=== PATIENT | male | born 1980 | race American Indian/Alaskan Native ===

== ENCOUNTER 2017-12-12 07:42 | Emergency (ER) | payer OTHER ==
--- NOTE | 2017-12-12 08:42 | Emergency Department Report ---
ED Chest Pain HPI - General Stated Complaint: CP Time Seen by Provider: 12/12/17 08:42 - History of Present Illness Initial Comments: 29-year-old male complains of S discomfort that occurred out of 5 in the morning. Patient states that he has never experienced this before. He was transferred via EMS. He was given 4 aspirin (81 mg) and 2 nitroglycerin sublingually. Patient states the pain went from an 8-2 time of arrival. He stated he did not feel short of breath. However, the pain varies with respirations but there was no cough. Patient denies any leg pain or swelling. He had no nausea vomiting or diaphoresis. The pain did not radiate and was in the substernal area. MD Complaint: chest pain -: unknown (awoke with pain) Onset: during rest Pain Location: substernal Pain Radiation: none Severity: moderate, severe Quality: pressure Consistency: now resolved (largely resolved by arrival) Improves With: nitroglycerin Worsens With: nothing re: denies: nausea, vomting, diaphoresis, dyspnea, sense of impending doom Other Symptoms: denies: cough, fever, syncope Treatments Prior to Arrival: aspirin, nitroglycerin Aspirin use within the Past 7 Days: (0) No - Related Data Allergies Allergy/AdvReac Type Severity Reaction Status Date / Time No Known Allergies Allergy Unverified 12/12/17 11:38 Heart Score - HEART Score History: Moderately suspicious EKG: Normal Age: < 45 Risk factors: 1-2 risk factors Troponin: < normal limit HEART Score: 2 - Critical Actions Critical Actions: 0-3 pts:0.9-1.7%risk of adverse cardiac event.Candidate for discharge ED Review of Systems ROS: Stated complaint: CP Other details as noted in HPI Constitutional: denies: chills, fever Eyes: denies: eye pain, eye discharge, vision change ENT: denies: ear pain, throat pain Respiratory: denies: cough, shortness of breath, wheezing Cardiovascular: chest pain. denies: palpitations Endocrine: no symptoms reported Gastrointestinal: denies: abdominal pain, nausea, diarrhea Genitourinary: denies: urgency, dysuria Musculoskeletal: denies: back pain, joint swelling, arthralgia Skin: denies: rash, lesions Neurological: denies: headache, weakness, paresthesias Psychiatric: denies: anxiety, depression Hematological/Lymphatic: denies: easy bleeding, easy bruising ED Past Medical Hx - Past Medical History Previous Medical History?: No - Family History Family history: other (no known coronary artery disease) - Social History Substance Use Type: Marijuana, Other (drank a beer last night) ED Physical Exam - General General appearance: alert, in no apparent distress - Head Head exam: Present: atraumatic, normocephalic - Eye Eye exam: Present: normal appearance. Absent: scleral icterus - ENT ENT exam: Present: mucous membranes moist - Neck Neck exam: Present: normal inspection. Absent: tenderness, meningismus - Respiratory Respiratory exam: Present: normal lung sounds bilaterally. Absent: respiratory distress - Cardiovascular Cardiovascular Exam: Present: regular rate, normal rhythm. Absent: systolic murmur, diastolic murmur, rubs, gallop - GI/Abdominal GI/Abdominal exam: Present: soft, normal bowel sounds. Absent: distended, tenderness, guarding, rebound, rigid - Rectal Rectal exam: Present: deferred - Extremities Exam Extremities exam: Present: normal inspection, full ROM, normal capillary refill. Absent: tenderness, pedal edema, joint swelling, calf tenderness - Back Exam Back exam: Present: normal inspection - Neurological Exam Neurological exam: Present: alert, oriented X3, CN II-XII intact. Absent: motor sensory deficit - Psychiatric Psychiatric exam: Present: normal affect, normal mood - Skin Skin exam: Present: warm, dry, intact, normal color. Absent: rash ED Course Vital Signs 12/12/17 12/12/17 12/12/17 07:45 08:20 08:30 Temperature 98 F Pulse Rate 60 72 77 Respiratory 16 10 L 25 H Rate Blood Pressure 127/67 O2 Sat by Pulse 99 Oximetry 12/12/17 12/12/17 12/12/17 08:46 09:00 09:15 Temperature Pulse Rate 72 72 68 Respiratory 16 27 H 18 Rate Blood Pressure 127/67 117/69 116/71 O2 Sat by Pulse Oximetry 12/12/17 12/12/17 12/12/17 09:30 09:45 10:00 Temperature Pulse Rate 71 73 80 Respiratory 17 20 18 Rate Blood Pressure 119/67 117/65 111/56 O2 Sat by Pulse Oximetry 12/12/17 12/12/17 12/12/17 10:15 10:30 10:45 Temperature Pulse Rate 72 73 69 Respiratory 24 22 21 Rate Blood Pressure 112/65 123/65 111/53 O2 Sat by Pulse Oximetry 12/12/17 11:00 Temperature Pulse Rate 75 Respiratory 23 Rate Blood Pressure 113/56 O2 Sat by Pulse Oximetry - Reevaluation(s) Reevaluation #1: Patient remains clinically stable. He is not complaining of any further chest pain. He was referred to Dr. Gautam of hospital service for further care and evaluation. 12/12/17 12:24 MARIA DEL ROSARIO score - Maria Del Rosario Score Age > 65: (0) No Aspirin use within the Past 7 Days: (0) No 3 or more CAD Risk Factors: (0) No 2 or more Angina events in past 24 hrs: (0) No Known CAD with more than 50% Stenosis: (0) No Elevated Cardiac Markers: (0) No ST Deviation Greater than 0.5mm: (0) No MARIA DEL ROSARIO Score: 0 ED Medical Decision Making - Lab Data Result diagrams: 12/12/17 08:15 12/12/17 08:15 Laboratory Results - last 24 hr 12/12/17 12/12/17 12/12/17 08:15 08:15 08:15 WBC 4.9 RBC 4.72 Hgb 13.5 Hct 39.9 MCV 85 MCH 29 MCHC 34 RDW 14.3 Plt Count 136 L Lymph % (Auto) 21.4 [place] % (Auto) 9.7 H Eos % (Auto) 1.3 Baso % (Auto) 0.6 Lymph # 1.0 L [place] # 0.5 Eos # 0.1 Baso # 0.0 Seg Neutrophils % 67.0 Seg Neutrophils # 3.3 PT 13.0 INR 0.94 APTT 28.6 D-Dimer < 135.0 Sodium 137 Potassium 3.7 Chloride 100.1 Carbon Dioxide 25 Anion Gap 16 BUN 9 Creatinine 0.9 Estimated GFR > 60 BUN/Creatinine Ratio 10 Glucose 105 H Calcium 8.9 Magnesium Total Bilirubin Direct Bilirubin Indirect Bilirubin AST ALT Alkaline Phosphatase Troponin T < 0.010 NT-Pro-B Natriuret Pep Total Protein Albumin Albumin/Globulin Ratio 12/12/17 08:15 WBC RBC Hgb Hct MCV MCH MCHC RDW Plt Count Lymph % (Auto) [place] % (Auto) Eos % (Auto) Baso % (Auto) Lymph # [place] # Eos # Baso # Seg Neutrophils % Seg Neutrophils # PT INR APTT D-Dimer Sodium Potassium Chloride Carbon Dioxide Anion Gap BUN Creatinine Estimated GFR BUN/Creatinine Ratio Glucose Calcium Magnesium 1.90 Total Bilirubin 0.40 Direct Bilirubin < 0.2 Indirect Bilirubin 0.2 AST 14 ALT 16 Alkaline Phosphatase 66 Troponin T NT-Pro-B Natriuret Pep 9.28 Total Protein 6.5 Albumin 4.0 Albumin/Globulin Ratio 1.6 - EKG Data -: EKG Interpreted by Me EKG shows normal: sinus rhythm, intervals, QRS complexes, ST-T waves Rate: normal - EKG Data Interpretation: no acute changes, other (left axis deviation) - Radiology Data Radiology results: report reviewed (chest x-ray no acute process) Critical care attestation.: If time is entered above; I have spent that time in minutes in the direct care of this critically ill patient, excluding procedure time. ED Disposition Clinical Impression: Chest pain Qualifiers: Chest pain type: unspecified Qualified Code(s): R07.9 - Chest pain, unspecified Disposition: 09 OP ADMIT IP TO THIS HOSP Is pt being admited?: Yes Does the pt Need Aspirin: Yes (already given by EMS) Condition: Stable Instructions: Chest Pain (ED) Referrals: PRIMARY CARE, [Primary Care Provider] - 3-5 Days Time of Disposition: 12:25
[2017-12-12] MEDS ORDERED: ASPIRIN PO ONE (08:57)
[2017-12-12 09:19] LABS: Basophils % (Auto) 0.6 % (0.0-1.8); Eosinophils # (Auto) 0.1 K/mm3 (0.0-0.4); Eosinophils % (Auto) 1.3 % (0.0-4.3); Hematocrit 39.9 % (35.5-45.6); Hemoglobin 13.5 gm/dl (11.8-15.2); Lymphocytes % (Auto) 21.4 % (13.4-35.0); Mean Corpuscular HGB Conc 34 % (32-34); Mean Corpuscular Hemoglobin 29 pg (28-32); Mean Corpuscular Volume 85 fl (84-94); Monocytes # (Auto) 0.5 K/mm3 (0.0-0.8); Monocytes % (Auto) 9.7 % (0.0-7.3); Platelet Count 136 K/mm3 (140-440); Red Blood Count 4.72 M/mm3 (3.65-5.03); Red Cell Distribution Width 14.3 % (13.2-15.2)
[2017-12-12 09:30] LABS: INR 0.94 (0.87-1.13)
[2017-12-12 09:31] LABS: Partial Thromboplastin Time 28.6 Sec. (24.2-36.6)
[2017-12-12 09:36] LABS: BUN/Creatinine Ratio 10; Blood Urea Nitrogen 9 mg/dL (9-20); Calcium 8.9 mg/dL (8.4-10.2); Hemolysis Index 8
[2017-12-12 09:39] LABS: Alanine Aminotransferase 16 units/L (7-56)
[2017-12-12 09:44] LABS: Bilirubin,Direct < 0.2 mg/dL (0-0.2)
[2017-12-12 12:03] LABS: Bilirubin,Urine NEG (Negative); Blood,Urine NEG (Negative); Color,Urine Yellow (Yellow); Mucus,Urine FEW /HPF; Protein,Urine <15 mg/dL mg/dL (Negative); Urobilinogen,Urine < 2.0 mg/dL (<2.0)
[2017-12-12 12:15] LABS: Amphetamine Screen,Urine PRESUMPTIVE NEGATIVE; Benzodiazepines Screen,Urine PRESUMPTIVE NEGATIVE; Cocaine Screen,Urine PRESUMPTIVE NEGATIVE; Methadone Screen,Urine PRESUMPTIVE NEGATIVE; Opiate Screen,Urine PRESUMPTIVE NEGATIVE
[2017-12-12 12:27] LABS: Cannabinoid Screen,Urine PRESUMPTIVE POSITIVE
--- NOTE | 2017-12-12 12:32 | History and Physical Report ---
History of Present Illness Chief complaint: chest pain History of present illness: 37 YO Male with No PMH presents to ED for evaluation. Pt found to have Atypical chest pain. Pt treated with serial cardiac enzymes, ekg, telemetry, d dimer which were normal, and not indicative of acute ischemia. Pt found to have symptoms consistent with GERD. Pt treated with supportive care with resolution of symptoms. Pt medically optimized and back to usual state of health. Pt discharged home and instructed to f/u pcp 1wk, and cardiology 1wk for further care. Past History Past Medical History: No medical history (reviewed) Past Surgical History: No surgical history (reviewed) Social history: single Family history: no significant family history Medications and Allergies Allergies Allergy/AdvReac Type Severity Reaction Status Date / Time No Known Allergies Allergy Unverified 12/12/17 11:38 Home Medications Medication Instructions Recorded Confirmed Last Taken Type Pantoprazole [Protonix TAB] 20 mg PO QDAY #30 tablet. 12/12/17 Unknown Rx Review of Systems Constitutional: no weight loss, no weight gain, no fever, no chills Ears, nose, mouth and throat: no ear pain, no ear discharge, no tinnitis, no decreased hearing, no nose pain, no nasal congestion Cardiovascular: chest pain, no orthopnea, no palpitations, no rapid/irregular heart beat, no edema, no syncope, no lightheadedness, no shortness of breath, no dyspnea on exertion, no paroxysmal nocturnal dyspnea, no claudication, no phlebitis, no high blood pressure, no leg edema, no decreased exercise tolerance Respiratory: no cough with sputum, no excessive sputum, no hemoptysis Gastrointestinal: no nausea, no vomiting, no diarrhea, no constipation, no change in bowel habits, no hematemesis Genitourinary Male: no hematuria, no flank pain, no discharge, no urinary frequency, no urinary hesitancy, no nocturia Rectal: no pain, no incontinence, no bleeding Musculoskeletal: no neck stiffness, no neck pain, no shooting arm pain, no arm numbness/tingling, no low back pain, no shooting leg pain Integumentary: no rash, no pruritis, no redness, no sores, no wounds, no jaundice Neurological: no transient paralysis, no paralysis, no weakness, no parathesias , no numbness, no tingling, no seizures, no syncope, no tremors Psychiatric: no anxiety, no memory loss, no change in sleep habits, no sleep disturbances, no insomnia, no hypersomnia, no change in appetite, no change in libido, no suicidal ideation Endocrine: no cold intolerance, no heat intolerance, no polyphagia, no excessive thirst, no polydipsia, no polyuria, no nocturia, no excessive sweating Hematologic/Lymphatic: no easy bruising, no easy bleeding, no lymphadenopathy, no lymphedema Allergic/Immunologic: no urticaria, no persistent infections, no anaphylaxis, no angioedema Exam - Constitutional Vitals: Temp Pulse Resp BP Pulse Ox 98 F 75 23 113/56 99 12/12/17 07:45 12/12/17 11:00 12/12/17 11:00 12/12/17 11:00 12/12/17 07:45 General appearance: Present: no acute distress, well-nourished - EENT Eyes: Present: PERRL ENT: hearing intact, clear oral mucosa - Neck Neck: Present: supple, normal ROM - Respiratory Respiratory effort: normal Respiratory: bilateral: CTA - Cardiovascular Heart Sounds: Present: S1 & S2. Absent: rub, click - Extremities Extremities: pulses symmetrical, No edema Peripheral Pulses: within normal limits - Abdominal General gastrointestinal: Present: soft, non-tender, non-distended, normal bowel sounds Male genitourinary: Present: normal - Integumentary Integumentary: Present: clear, warm, dry - Musculoskeletal Musculoskeletal: gait normal, strength equal bilaterally - Psychiatric Psychiatric: appropriate mood/affect, intact judgment & insight - Neurologic Neurologic: CNII-XII intact, moves all extremities Results - Labs CBC & Chem 7: 12/12/17 08:15 12/12/17 08:15 Labs: Abnormal lab results 12/12/17 12/12/17 Range/Units 08:15 08:15 Plt Count 136 L (140-440) K/mm3 [place] % (Auto) 9.7 H (0.0-7.3) % Lymph # 1.0 L (1.2-5.4) K/mm3 Glucose 105 H (75-100) mg/dL Assessment and Plan - Patient Problems (1) Atypical chest pain Status: Acute Plan to address problem: Serial cardiac enzymes, ekg, telemetry, d dimer, normal. Pt discharged home. f/ u pcp 1wk, cardiology 1 wk (2) GERD (gastroesophageal reflux disease) Status: Acute Qualifiers: Esophagitis presence: without esophagitis Qualified Code(s): K21.9 - Gastro -esophageal reflux disease without esophagitis Plan to address problem: ppi therapy
[2017-12-12 16:23] VITALS: BP 123/57
== END 2017-12-12 17:50 | disposition admitted as inpatient to this hospital (09) ==
LOC: ED 07:42
DX: R07.9 Chest pain, unspecified (principal); Z79.899 Other long term (current) drug therapy
CPT/HCPCS: 36415; 71045; 80048; 80074; 80307; 81001; 83735; 83880; 84484; 85025; 85379; 85610; 85730; 93005; 93010